=== PATIENT | female | born 1990 | race Caucasian/White ===

== ENCOUNTER → 2020-11-08 | Outpatient (REF) | payer OTHER ==
[2020-11-08 11:59] LABS: BASO % 0.4 % (0.0-1.0); EOS # 0.1 10^3/uL (0.0-0.5); EOS % 1.8 % (0.0-3.0); HEMATOCRIT 44.9 % (36.0-47.0); HEMOGLOBIN 14.5 g/dl (12.0-15.5); LYMPH # 1.5 10^3/uL (1.5-5.0); LYMPH % 27.4 % (24.0-44.0); MEAN CORPUSCULAR HEMOGLOBIN 29.8 pg (27.0-33.0); MEAN CORPUSCULAR HGB CONC 32.3 g/dl (32.0-36.5); MEAN CORPUSCULAR VOLUME 92.2 fl (80.0-96.0); MONO # 0.4 10^3/uL (0.0-0.8); MONO % 6.7 % (0.0-5.0); NEUTROPHILS # 3.5 10^3/uL (1.5-8.5); NEUTROPHILS % 63.5 % (36.0-66.0); PLATELET COUNT, AUTOMATED 297 10^3/uL (150-450); RED BLOOD COUNT 4.87 10^6/uL (4.00-5.40); WHITE BLOOD COUNT 5.6 10^3/uL (4.0-10.0)
[2020-11-08 12:36] LABS: MAGNESIUM LEVEL 2.4 MG/DL (1.8-2.4); PHOSPHORUS LEVEL 3.5 MG/DL (2.5-4.9); PTH INTACT 38.7 PG/ML (18.5-88.0); THYROID STIMULATING HORMONE 2.03 uIU/ML (0.358-3.740); TOTAL 25(OH) VITAMIN D 29.2 NG/ML (30.0-100.0)
[2020-11-09 23:21] LABS: ANA (HEP2) Positive (.)
== END ==
LOC: M SFHCRHEU 09:47
PROVIDERS: ATTEND Internal Medicine
DX: R76.8 Other specified abnormal immunological findings in serum (principal); M79.10 Myalgia, unspecified site; R53.82 Chronic fatigue, unspecified

== ENCOUNTER → 2020-12-09 | Outpatient (CLI) | payer OTHER ==
--- NOTE | 2020-12-12 16:15 | SLEEPHOME ---
DIAGNOSTIC HOME SLEEP STUDY DATE: 12/09/2020 ORDERED BY: Cathy Faye M.D. of rheumatology. Diagnostic home sleep testing was performed due to concern for the obstructive sleep apnea syndrome in this patient with a history of chronic fatigue. For testing, a nocturnal T3 respiratory monitoring device was used. Continuous record was made of pulse, oxygen saturation, air flow, chest and abdominal strain, and body position. 11 hours and 59 minutes of data were reviewed. There were 5 hours and 44 minutes marked as time in bed. During the interval marked time in bed, there were 80 respiratory events identified of 10 seconds in duration or greater for a respiratory event index 13.9. The events were primarily obstructive. There were 13 mixed and central apneas also noted. Baseline pulse rate was 68. Pulse rate range between 50 and 107. Baseline saturation was 95%. Saturations were seen to fall to 85%. Testing was performed in both the supine and non-supine positions. IMPRESSION: Abnormal home sleep testing with repetitive respiratory events and oxygen desaturations to 85% with a respiratory event index of 13.9 is consistent with the obstructive sleep apnea syndrome. RECOMMENDATION: The patient should be encouraged to undergo referral for formal sleep evaluation, as she would likely benefit from pressure therapy titration.
== END ==
LOC: M SLEEP HO 08:12
PROVIDERS: ATTEND Internal Medicine
DX: R53.82 Chronic fatigue, unspecified (principal)

== ENCOUNTER → 2023-10-17 | Outpatient (REF) ==
[2023-10-17 16:15] LABS: COLLAGEN EPINEPHRINE 148 SECONDS (74-162)
== END ==
LOC: M LAB REF 15:58
PROVIDERS: ATTEND Physician Assistant
DX: Z00.00 Encounter for general adult medical examination without abnormal findings (principal); Z01.89 Encounter for other specified special examinations

== ENCOUNTER → 2024-12-10 | Outpatient (REF) | payer OTHER ==
[2024-12-10 13:37] LABS: BASO % 0.5 % (0.0-1.0); EOS # 0.2 10^3/uL (0.0-0.5); EOS % 2.4 % (0.0-3.0); HEMATOCRIT 47.3 % (36.0-47.0); HEMOGLOBIN 14.9 g/dl (12.0-15.5); LYMPH # 2.1 10^3/uL (1.5-5.0); LYMPH % 34.4 % (24.0-44.0); MEAN CORPUSCULAR HEMOGLOBIN 29.6 pg (27.0-33.0); MEAN CORPUSCULAR HGB CONC 31.5 g/dl (32.0-36.5); MONO # 0.4 10^3/uL (0.0-0.8); NEUTROPHILS # 3.5 10^3/uL (1.5-8.5); NEUTROPHILS % 56.5 % (36.0-66.0); PLATELET COUNT, AUTOMATED 337 10^3/uL (150-450); RED BLOOD COUNT 5.03 10^6/uL (4.00-5.40); WHITE BLOOD COUNT 6.1 10^3/uL (4.0-10.0)
[2024-12-10 13:41] LABS: PERCENT SATURATION 15.7 % (13.2-45.0)
[2024-12-10 13:43] LABS: FERRITIN 36.4 NG/ML (7.3-270.7)
[2024-12-10 13:44] LABS: TOTAL 25(OH) VITAMIN D 32.8 NG/ML (20.0-100.0)
== END ==
LOC: M SFHCRHEU 10:15
PROVIDERS: ATTEND Internal Medicine
DX: E61.1 Iron deficiency (principal); E55.9 Vitamin D deficiency, unspecified